=== PATIENT | female | born 1995 | race Caucasian/White ===

== ENCOUNTER 2018-10-23 14:58 | Day surgery (SDC) | payer OTHER ==
[2018-10-23 15:33] VITALS: TEMP 98.1; BMI 28.3
[2018-10-23] MEDS ORDERED: Lactated Ringer's 1,000 ML IV SCH (16:00)
--- NOTE | 2018-10-23 18:37 | HP ---
PRIMARY OB: Hossein Napier MD CHIEF COMPLAINT: Pelvic pain. HISTORY OF PRESENT ILLNESS: The patient is a 23-year-old G4, P3, female with an intrauterine at 37 weeks tomorrow, who presents with a several week history of pelvic pain that has worsened in the last couple days. The patient reports that this pain is on her left inguinal region and is much worse with activity and movement such as getting out of bed, getting out of car, rolling over, walking. The patient's three previous pregnancies had not been painful like this, which made the patient worried. The patient reports that she feels occasional contractions but not real frequent. She denies any vaginal bleeding or leakage of fluid. She denies any recent fever, fall, headache, chest pain, shortness of breath. She has had some nausea. Denies diarrhea, vomiting or constipation. Denies any new rashes, hip problems, knee problems, muscle weakness. Denies vaginal bleeding, leakage of fluid, urinary urgency or frequency. PAST MEDICAL HISTORY: Anxiety and depression. PAST SURGICAL HISTORY: Negative. SOCIAL HISTORY: Denies drug, alcohol, or tobacco use. ALLERGIES: NO KNOWN DRUG ALLERGIES. MEDICATIONS: Fluoxetine 20 mg which she reports she is no longer taking and vitamins. OB LABS: Blood type is O positive. Antibody screen is negative. VDRL is nonreactive. Hepatitis B surface antigen nonreactive. HIV nonreactive. She is rubella immune. One-hour Glucola is 99. Third trimester VDRL is nonreactive. REVIEW OF SYSTEMS: Per HPI. PHYSICAL EXAMINATION: VITAL SIGNS: Upon arrival, blood pressure is 122/69, heart rate of 139, respiratory rate of 20, saturating 100% on room air, and temperature 98.1. GENERAL: She appears to be in no acute distress. She is alert, oriented, cooperative, and pleasant to interact with. HEAD: Normocephalic and atraumatic. LUNGS: Clear to auscultation bilaterally. HEART: At the time of my exam, slightly less tachycardic in the one teens jumping to the 120s on the monitor. ABDOMEN: Gravid. She does have some tenderness to palpation on deviation of the uterus to the right, has tenderness in the left inguinal region. EXTREMITIES: Nontender and nonedematous. : Has been deferred. heart tracing shows the fetus with a baseline in the 140s with moderate long-term variability, positive 15 x 15 accelerations, no decelerations. Tocometer showing occasional contractions about every 7 to 10 minutes, not all felt by the patient. EKG shows normal sinus rhythm. ASSESSMENT AND PLAN: The patient is a 23-year-old female who presented with left lower quadrant pain consistent with ligament pain of and tachycardia which seemed to be fairly labile according to the conversation over the course of her stay; however, the patient has received 1 L of LR and her pulse has come down nicely to 90s to 100s being on the high side. The patient feels better, though she continues to have pain on the left inguinal region. We have given her precautions. I have counseled her that she can take two Tylenol 3 times a day, warm moist heat, tub bath may all be helpful in soothing discomfort. The patient does report her babies tend to come 2 to 3 weeks early and I have given her term labor precautions. The patient has to follow up with her primary OB, Dr. Hossein Napier in the near future, which we have encouraged to keep. Job ID: [id number]
--- NOTE | 2018-10-25 09:16 | EKG ---
Test Reason : Blood Pressure : / mmHG Vent. Rate : 097 BPM Atrial Rate : 097 BPM P-R Int : 128 ms QRS Dur : 072 ms QT Int : 340 ms P-R-T Axes : 055 057 001 degrees QTc Int : 431 ms Normal sinus rhythm Normal ECG No previous ECGs available Confirmed by BILLIE RHOADES, DR. Guajardo ([id number]) on 10/25/2018 9:16:38 AM Referred By: Confirmed By:DR. Casandra WISE MD
== END 2018-10-23 17:10 | disposition home or self-care (01) ==
LOC: L&D/OP 14:58
PROVIDERS: ATTEND Obstetrics & Gynecology
DX: O99.89 Other specified diseases and conditions complicating pregnancy, childbirth and the puerperium (principal); R10.2 Pelvic and perineal pain; O99.343 Other mental disorders complicating pregnancy, third trimester; F41.8 Other specified anxiety disorders; F32.9 Major depressive disorder, single episode, unspecified; Z3A.36 36 weeks gestation of pregnancy
CPT/HCPCS: 59025; 93005; 93010; 96360; 99282

== ENCOUNTER 2018-10-25 22:20 | Inpatient (IN) | payer OTHER ==
[2018-10-25 22:42] VITALS: BMI 27.1
--- NOTE | 2018-10-26 00:54 | PDOC.FPROB ---
Addendum entered and electronically signed by Neha Talley DO 10/26/18 03 :45: 10/26/2018 at 3:45 AM Cervical check /-2, [email or web address] Continues to make cervical change Admit to L&D for expectant management GBS unknown; swab collected several weeks ago, but no results available No history available for review, labs based on past admission H&P Original Note: [facility] OB H&P: HPI - History of Present Illness Chief Complaint: Contractions Indentification: 23 year old at 37.1 wks History of Present Illness: 23 year old at 37.1 wks with ALVARO of 11/14/2018 presents with contractions q3min and gradually getting stronger. Patient seen 2 days ago for vaginal pressure. Patient denies N/V, vaginal bleeding, LoF, vaginal discharge. Endorses good movement. Primary Care Physician: Dr. Napier [facility]MR OB H&P: Current - Care : 4 Para: 2103 Gestational age: 37.1 wk Due date: 11/14/2018 - OB Labs Blood type: O RH: positive Antibody Screen: negative HIV: negative RPR: negative HepBsAg: negative Rubella: immune 1 hour gtt: 99 GBS: unknown [facility] OB H&P: History - Past Medical History PMH: Anxiety Depression - OB History OB History: Gastroschisis with last delivery, planned at 36 wks x3 - Surgical History Sx History: Denies - Social History Social History: Denies alcohol, tobacco, or drug use [facility] OB H&P: Medications - Current Allergies/Adverse Reactions: Allergies Allergy/AdvReac Type Severity Reaction Status Date / Time Penicillins Allergy Verified 10/25/18 22:43 strawberry Allergy Verified 10/26/18 18:42 [facility]MR OB H&P: ROS - Review of Systems General: denies: fever/chills, weight/appetite/sleep changes Eyes: denies: vision changes, scotomas ENT: denies: nasal congestion, rhinorrhea, sore throat Cardiovascular: denies: chest pain, palpitation, edema Gastrointestinal: denies: nausea, vomiting Genitourinary (Female): reports: contractions. denies: dysuria, vaginal discharge, vaginal bleeding, vaginal pressure Musculoskeletal: denies: pain, stiffness Neurologic: denies: numbness, syncope Integumentary: denies: itching, rash Hematologic/Lymphatic: denies: prolonged or excessive bleeding Psychological: reports: depression, anxiety [facility]MR OB H&P: Vital Signs - Maternal Vital signs: BP 123/83 Pulse 83 Afebrile - Heart Tones Baseline: 145 Variability: moderate Acceleration: present Deceleration: absent Category: category 1 [place] contractions every: q2-3 min [facility] OB H&P: Physical Exam - Physical Exam General: NAD, awake, alert and oriented HEENT: MMM, grossly normal vision, grossly normal hearing Heart: RRR Deviation from normal: systolic murmur General: CTAB, no respiratory distress Abdomen: soft, gravid Musculoskeletal: pulses present, FROM in all four extremities Neurological: no tremor, no focal deficit Skin: no rash, capillary refill <2 seconds Lymphatic: no unusual bruising or bleeding Psychiatric: intact recent and remote memory, good judgement and insight - Pelvic Exam SVE: /-2 at 23:00 [facility]MR OB H&P: A/P - Problem List (1) Term Status: Acute Code(s): Z34.90 - ENCNTR FOR SUPRVSN OF NORMAL , UNSP, UNSP TRIMESTER (2) Anxiety Status: Acute Code(s): F41.9 - ANXIETY DISORDER, UNSPECIFIED (3) Depression Status: Acute Code(s): F32.9 - MAJOR DEPRESSIVE DISORDER, SINGLE EPISODE, UNSPECIFIED (4) Uterine contractions Status: Acute Code(s): VBG5287 - Disposition: 23 year old at 37.1 wks presents with regular, painful contractions 1. TIUP - 37.1 wks - Contractions q3min - Category I strip - Initial cervical check 350/-2, posterior --> repeat 3.550/-2 - Contractions appear more painful - Will allow patient 2 more hours to see if she makes change - Patient declining pain medications at this time 2. Systolic murmur - Patient has had since Dispo: Expectant management. Will re-evaluate in 2 hours. Discussion: Date/Time: 10/26/18 0022 This H&P was discussed with Dr. Gatica who agrees with the above documentation and plan. Signature: Neha Talley DO PGY-2 Addendum - Attending - Attending Attestation Date/Time: 10/29/18 1001 I personally evaluated the patient and discussed the management with Dr. Talley. I agree with the History, Examination, Assessment and Plan documented above with any addition or exceptions noted below. PT being admitted for labor. Dr Napier is the admitting physician.
[2018-10-26] MEDS ORDERED: Ibuprofen 800 MG TAB PO PRN (03:42)
[2018-10-26] MEDS ORDERED: Acetaminophen 500 MG TAB PO PRN (03:42)
[2018-10-26] MEDS ORDERED: Docusate 100 MG CAP PO PRN (03:42)
[2018-10-26] MEDS ORDERED: Lidocaine 1% (PF) 30 ML VIAL SC PRN (03:42)
[2018-10-26] MEDS ORDERED: Promethazine HCl 25 MG/ML VIAL IM PRN ×3 (03:42→17:13)
[2018-10-26] MEDS ORDERED: Butorphanol Tartrate 1 MG/ML VIAL SLOW IVP PRN (03:42)
[2018-10-26] MEDS ORDERED: NS / Oxytocin 40 units/1000ml 1,000 ML IV PRN (03:42)
[2018-10-26] MEDS: Lactated Ringer's 1,000 ML IV SCH ×2 (04:00→17:10)
[2018-10-26 04:49] LABS: Hemoglobin 8.3 g/dL (12.0-16.0); Mean Corpuscular Volume 69.6 fL (78.0-98.0)
[2018-10-26] MEDS ORDERED: Fentanyl 4 mcg/Bup 0.1% Cadd 100 ML ONE ×2 (04:52→13:36)
[2018-10-26 04:55] LABS: Mean Corpuscular HGB CONC 31.7 g/dL (32.0-36.0); Mean Corpuscular Hemoglobin 22.1 pg (27.0-31.0); Mean Platelet Volume 7.8 fL (7.4-10.4); Platelet Count 390 thou/uL (130-400); RBC Distribution Width 15.8 % (11.5-14.5); Red Blood Cell (RBC) Count 3.75 mill/uL (4.20-5.40); White Blood Cell (WBC) Count 12.2 thou/uL (4.8-10.8)
[2018-10-26 05:01] LABS: Syphilis Antibody Nonreactive (Nonreactive); Syphilis Antibody Index 0.02 S/CO (<1.00 Non-Reactive)
[2018-10-26 05:03] LABS: HBSAg Index 0.31 S/CO (0-0.99); Hep B Surf Ag Non-Reactive S/CO (NonReactive)
[2018-10-26] MEDS: Fentanyl 4 mcg/Bupivacaine 0.1% Cassette 100 ML EPIDURAL SCH ×2 (06:05→13:39)
[2018-10-26] MEDS ORDERED: ePHEDrine/0.9% NaCl/PF SYRINGE 50 mg/10 ml SLOW IVP PRN (06:10)
[2018-10-26] MEDS ORDERED: diphenhydrAMINE 50 MG/ML VIAL IVP PRN (06:10)
[2018-10-26] MEDS ORDERED: Lactated Ringer's 500 ML IV PRN (06:10)
[2018-10-26] MEDS ORDERED: Naloxone HCl 0.4 mg/ml Vial IVP PRN ×2 (06:10)
[2018-10-26] MEDS ORDERED: Ondansetron PF 4 MG/2 ML Vial IVP PRN ×2 (06:10→17:13)
[2018-10-26] MEDS ORDERED: Acetaminophen 325 MG TAB PO PRN (06:10)
[2018-10-26] MEDS ORDERED: Communication Order-Pharmacy FS SCH (06:15)
[2018-10-26] MEDS: Ondansetron PF 4 MG/2 ML Vial IVP PRN ×2 (09:22→17:04)
[2018-10-26] MEDS ORDERED: NS w/ Oxytocin 10 units 500 ML IVPB SCH (09:30)
[2018-10-26] MEDS ORDERED: Bupivacaine/Epinephrine 0.25% 30 ML VIAL ONE (15:00)
[2018-10-26] MEDS ORDERED: Preparation H Ointment 28 GM TUBE PR PRN (17:13)
[2018-10-26] MEDS ORDERED: Zolpidem Tartrate 5 MG TAB PO PRN (17:13)
[2018-10-26] MEDS ORDERED: Lanolin Ointment 7 GM TUBE TOP PRN (17:13)
[2018-10-26] MEDS ORDERED: NS / Oxytocin 40 units/1000ml 1,000 ML IV SCH (17:13)
[2018-10-26] MEDS ORDERED: HYDROcodone/Acetaminophen 5/325 mg Tablet PO PRN ×2 (17:13)
[2018-10-26] MEDS ORDERED: diphenhydrAMINE 25 MG CAP PO PRN (17:13)
[2018-10-26] MEDS ORDERED: Bisacodyl 10 MG SUPP PR PRN (17:13)
[2018-10-26] MEDS ORDERED: Benzocaine-Menthol 82.5 ML CAN TOP PRN (17:13)
[2018-10-26] MEDS ORDERED: Milk Of Magnesia 30 ML UDCUP PO PRN (17:13)
[2018-10-26] MEDS ORDERED: Ferrous Sulfate 325 MG TAB PO SCH (17:30)
[2018-10-26] MEDS ORDERED: Docusate Calcium (SURFAK) 240 MG CAP PO SCH (21:00)
[2018-10-26] MEDS: Ibuprofen 800 MG TAB PO SCH (23:51)
--- NOTE | 2018-10-27 05:20 | PDOC.PP ---
Post Progress Note Post Day #: 1 PO intake tolerated: yes Flatus: yes Ambulation: yes Vital Signs (12 hours) Temp Pulse Resp BP Pulse Ox 10/27/18 04:15 98.8 F 76 18 118/60 97 10/27/18 00:30 98.5 F 75 18 126/62 96 10/26/18 19:50 98.4 F 80 18 122/77 97 10/26/18 17:56 98.2 F 76 18 134/74 99 Weight Weight 144 lb - Physical Examination General: NAD Cardiovascular: no m/r/g, RRR Respiratory: clear to auscultation bilaterally Abdominal: + bowel sounds, lochia Extremities: negative homans (B) Psychiatric: A&Ox3, normal affect (DC home later today planned) Result Diagrams: 10/26/18 04:05 Additional Labs: Post Labs Blood Type O POSITIVE 10/26/18 07:12 Hep Bs Antigen Non-Reactive S/CO (NonReactive) 10/26/18 04:05
[2018-10-27 06:08] LABS: Hemoglobin 6.9 g/dL (12.0-16.0); Mean Corpuscular HGB CONC 31.9 g/dL (32.0-36.0); Mean Platelet Volume 6.8 fL (7.4-10.4); Platelet Count 299 thou/uL (130-400); RBC Distribution Width 15.6 % (11.5-14.5); Red Blood Cell (RBC) Count 3.12 mill/uL (4.20-5.40); White Blood Cell (WBC) Count 14.2 thou/uL (4.8-10.8)
[2018-10-27] MEDS: Ibuprofen 800 MG TAB PO SCH (06:40)
[2018-10-27] MEDS ORDERED: Ferrous Sulfate 325 MG TAB PO SCH (08:00)
[2018-10-27] MEDS ORDERED: Varicella virus, LIVE 0.5 ML VIAL SC ONE (09:00)
[2018-10-27] MEDS ORDERED: Adacel (T-DAP) 0.5 ML SYRINGE IM ONE (09:00)
[2018-10-27] MEDS ORDERED: Measles/Mumps/Rubella 10 MCG/0.5 ML VIAL SC ONE (09:00)
[2018-10-27 16:24] VITALS: BP 114/66; TEMP 98.5
== END 2018-10-27 17:05 | disposition home or self-care (01) | DRG 807 ==
LOC: L&D/OP 22:20 → L&D 10-26 03:42 → 3SE 10-26 17:06
PROVIDERS: ADMIT Obstetrics & Gynecology; ATTEND Obstetrics & Gynecology
PROC: 10E0XZZ Delivery of Products of Conception, External Approach (ICD-10-PCS; principal; 2018-10-26)
DX: O99.344 Other mental disorders complicating childbirth (principal); Z37.0 Single live birth; F32.9 Major depressive disorder, single episode, unspecified; F41.9 Anxiety disorder, unspecified; Z3A.37 37 weeks gestation of pregnancy; Z88.0 Allergy status to penicillin; Z91.018 Allergy to other foods
CPT/HCPCS: 36415; 51702; 85027; 86780; 86850; 86900; 86901; 87340; 99285; J2405; J2590